=== PATIENT | female | born 2000 | race Two or more races ===

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

== ENCOUNTER 2023-05-28 07:31 | Emergency (ER) | payer OTHER ==
[~2023-05-28] VITALS: Ht 147.3 cm; Wt 61.4 kg
[2023-05-28 07:34] VITALS: TEMP 99.6
[2023-05-28] MEDS: IBUPROFEN 600 MG TABLET PO ONE (08:01)
[2023-05-28] MEDS: DEXAMETHASONE SOD PHOS 4 MG/ML 5 ML VIAL IM ONE (08:01)
[2023-05-28] MEDS: PENICILLIN G BENZATHINE LA 1,200,000 UNITS/2 ML SYRINGE IM ONE (08:21)
[2023-05-28 08:24] VITALS: BP 121/70; PULSE 94; RESP 16
== END 2023-05-28 08:43 | disposition home or self-care (01) ==
LOC: EMS 07:34
DX: J02.0 Streptococcal pharyngitis (principal)
CPT/HCPCS: 99284; 87430; 96372; J0561; J1100

== ENCOUNTER 2023-07-27 20:37 | Emergency (ER) | payer OTHER ==
[~2023-07-27] VITALS: Ht 147.3 cm; Wt 59.1 kg
[2023-07-27] MEDS ORDERED: IBUP-1492 PO (22:36)
[2023-07-27] MEDS ORDERED: AMOX500C2 PO (22:36)
[2023-07-27 23:08] VITALS: BP 122/74; PULSE 83; RESP 16; TEMP 97.9
== END 2023-07-27 23:16 | disposition home or self-care (01) ==
LOC: EMS 20:37
DX: J02.9 Acute pharyngitis, unspecified (principal); H66.92 Otitis media, unspecified, left ear
CPT/HCPCS: 87430; 99283

== ENCOUNTER 2025-02-09 19:18 | Emergency (ER) | payer OTHER ==
[~2025-02-09] VITALS: Ht 149.9 cm; Wt 70.0 kg
[~2025-02-09 19:18] MED LIST: AMOX500C2 PO; IBUP-1492 PO
[2025-02-09 19:23] VITALS: BP 120/92; PULSE 89; RESP 18; TEMP 98.2; O2SAT 100
[2025-02-09 19:59] LABS: PLATELET COUNT (AUTO) 297 K/uL (150-450); RED BLOOD CELL COUNT(AUTO) 4.34 MIL/uL (4.00-5.20); RED CELL DISTRIBUTION WIDTH 13.0 % (11.5-14.5); WHITE BLOOD COUNT (AUTO) 8.5 K/uL (4.5-11.0)
[2025-02-09 20:08] LABS: APPEARANCE,URINE CLEAR (CLEAR); GLUCOSE, URINE (UA) TRACE mg/dL (NEGATIVE); LEUKOCYTE ESTERASE ,URINE SMALL (NEGATIVE); NITRATE,URINE NEGATIVE (NEGATIVE); OCCULT BLOOD,URINE NEGATIVE (NEGATIVE); SPECIFIC GRAVITIY, URINE 1.031 (1.003-1.030)
[2025-02-09 20:08] LABS: CALCIUM, TOTAL 9.2 mg/dL (8.8-10.5); CREATININE 0.61 mg/dL (0.60-1.30); GLOMERULAR FILTR. RATE CALC > 60 mL/min (>60); GLUCOSE,RANDOM 107 mg/dL (70-110); SODIUM SERUM 139 mmol/L (136-145); UREA NITROGEN, BLOOD 15 mg/dL (7-18)
[2025-02-09 20:20] LABS: SQUAMOUS EPITHELIAL CELL,UR Moderate /LPF (None Seen)
[2025-02-09] MEDS ORDERED: NITR-104 PO (23:40)
[2025-02-09] MEDS: NITROFURANTOIN MONOHYD/M-CRYST 100 MG CAPSULE [MACROBID] PO ONE (23:49)
== END 2025-02-10 00:01 | disposition home or self-care (01) ==
LOC: EMS 19:18
DX: N39.0 Urinary tract infection, site not specified (principal); Z98.890 Other specified postprocedural states; Z20.822 Contact with and (suspected) exposure to COVID-19
CPT/HCPCS: 80048; 81001; 84703; 85025; 87086; 99283